=== PATIENT | female | born 1995 | race Caucasian/White ===

== ENCOUNTER 2018-04-30 20:13 | Emergency (ER) | payer OTHER ==
[~2018-04-30 20:13] MED LIST: ETHI1TAB20 PO
--- NOTE | 2018-04-30 20:29 | ER Report ---
History and Physical Time Seen By MD: 20:25 Hx. of Stated Complaint: Patient sent from urgent care. Chest pain and shortness of breath. On oral control pills since 2009 HPI/ROS CHIEF COMPLAINT: Chest tightness HISTORY OF PRESENT ILLNESS: 22-year-old female sent over from urgent care with concerns over chest tightness and difficulty breathing. Patient's on control pills. They were concerned about a pulmonary embolism. A arauz describes approximately 3-4 days of URI symptoms with coughing and chest tightness. She's had no leg swelling. Patient uses an albuterol inhaler when necessary. REVIEW OF SYSTEMS: Respiratory: As above Cardiovascular: As above Gastrointestinal: No vomiting, no abdominal pain. Musculoskeletal: No back pain. Allergies: Coded Allergies: Penicillins (Verified Allergy, Intermediate, RASH, SWELLING, 04/30/18) amoxicillin (Verified Allergy, Intermediate, RASH, SWELLING, 04/30/18) Home Meds Reported Medications Ethinyl Estradiol/Drospirenone (OCELLA 3 MG-0.03 MG TABLET) 1 Each Tablet, 1 EACH PO DAILY 11/28/15 Reviewed Nurses Notes: Yes Old Medical Records Reviewed: Yes Hx Smoking: No Smoking Status: Never Smoker Hx Substance Use Disorder: No Hx Alcohol Use: No Constitutional Vital Sign - Last 24 Hours 04/30/18 04/30/18 04/30/18 04/30/18 20:19 20:21 20:30 20:36 Temp 98.7 Pulse 84 Resp 16 B/P (MAP) 125/91 (102) 125/91 121/89 (100) Pulse Ox 98 96 O2 Delivery Room Air 04/30/18 04/30/18 20:45 21:00 Pulse 79 87 B/P (MAP) 118/99 (105) Pulse Ox 97 98 Physical Exam Vital signs stable, afebrile, pulse ox normal General Appearance: The patient is alert, has no immediate need for airway protection and no current signs of toxicity. No acute distress HEENT: Pupils equal and round no injection. TMs normal, oropharynx with mild erythema, no exudate Respiratory: Chest is non tender, lungs are clear to auscultation. No wheezing , no chest all tenderness Cardiac: regular rate and rhythm Gastrointestinal: Abdomen is soft and non tender, no masses, bowel sounds normal. Musculoskeletal: Neck: Neck is supple and non tender. No lymphadenopathy Extremities have full range of motion and are non tender. No edema, no calf tenderness Skin: No rashes or lesions. DIFFERENTIAL DIAGNOSIS: After history and physical exam differential diagnosis was considered for shortness of breath including but not limited to pulmonary infectious process, COPD, asthma, pulmonary embolus and congestive heart failure. Medical Decision Making Data Points Result Diagram: 04/30/18203504/30/182035 Laboratory Hematology Test 04/30/18 20:36 Red Blood Count 4.55 M/uL (4.17-5.56) Mean Corpuscular Volume 86.9 fL (80.0-96.0) Mean Corpuscular Hemoglobin 30.7 pg (26.0-33.0) Mean Corpuscular Hemoglobin Concent 35.3 g/dL (32.0-36.0) Red Cell Distribution Width 12.7 % (11.5-14.5) Mean Platelet Volume 6.7 fL (7.2-11.1) Neutrophils (%) (Auto) 44.3 % (39.4-72.5) Lymphocytes (%) (Auto) 47.4 % (17.6-49.6) Monocytes (%) (Auto) 5.9 % (4.1-12.4) Eosinophils (%) (Auto) 1.4 % (0.4-6.7) Basophils (%) (Auto) 1.0 % (0.3-1.4) Nucleated RBC Relative Count (auto) 0.1 /100WBC Neutrophils # (Auto) 3.6 K/uL (2.0-7.4) Lymphocytes # (Auto) 3.9 K/uL (1.3-3.6) Monocytes # (Auto) 0.5 K/uL (0.3-1.0) Eosinophils # (Auto) 0.1 K/uL (0.0-0.5) Basophils # (Auto) 0.1 K/uL (0.0-0.1) Nucleated RBC Absolute Count (auto) 0.01 K/uL D-Dimer Quantitative (PE/DVT) < 0.27 ug/ml (0-0.50) Sodium Level 137 mmol/L (137-145) Potassium Level 3.6 mmol/L (3.5-5.0) Chloride Level 103 mmol/L (98-107) Carbon Dioxide Level 25 mmol/L (22-31) Blood Urea Nitrogen 9 mg/dl (7-18) Creatinine 0.60 mg/dl (0.52-1.04) Glomerular Filtration Rate Calc > 60.0 Random Glucose 90 mg/dl (75-110) Calcium Level 8.9 mg/dl (8.4-10.2) Total Bilirubin 0.4 mg/dl (0.2-1.3) Aspartate Amino Transf (AST/SGOT) 30 U/L (0-35) Alanine Aminotransferase (ALT/SGPT) 20 U/L (0-56) Alkaline Phosphatase 68 U/L (0-126) Total Protein 7.2 g/dl (6.3-8.2) Albumin 3.8 g/dl (3.5-5.0) Human Chorionic Gonadotropin, Qual Negative (NEGATIVE) Chemistry Test 04/30/18 20:36 White Blood Count 8.1 k/uL (4.5-11.0) Red Blood Count 4.55 M/uL (4.17-5.56) Hemoglobin 13.9 g/dL (12.0-16.0) Hematocrit 39.5 % (34.0-47.0) Mean Corpuscular Volume 86.9 fL (80.0-96.0) Mean Corpuscular Hemoglobin 30.7 pg (26.0-33.0) Mean Corpuscular Hemoglobin Concent 35.3 g/dL (32.0-36.0) Red Cell Distribution Width 12.7 % (11.5-14.5) Platelet Count 318 K/uL (150-450) Mean Platelet Volume 6.7 fL (7.2-11.1) Neutrophils (%) (Auto) 44.3 % (39.4-72.5) Lymphocytes (%) (Auto) 47.4 % (17.6-49.6) Monocytes (%) (Auto) 5.9 % (4.1-12.4) Eosinophils (%) (Auto) 1.4 % (0.4-6.7) Basophils (%) (Auto) 1.0 % (0.3-1.4) Nucleated RBC Relative Count (auto) 0.1 /100WBC Neutrophils # (Auto) 3.6 K/uL (2.0-7.4) Lymphocytes # (Auto) 3.9 K/uL (1.3-3.6) Monocytes # (Auto) 0.5 K/uL (0.3-1.0) Eosinophils # (Auto) 0.1 K/uL (0.0-0.5) Basophils # (Auto) 0.1 K/uL (0.0-0.1) Nucleated RBC Absolute Count (auto) 0.01 K/uL D-Dimer Quantitative (PE/DVT) < 0.27 ug/ml (0-0.50) Glomerular Filtration Rate Calc > 60.0 Calcium Level 8.9 mg/dl (8.4-10.2) Total Bilirubin 0.4 mg/dl (0.2-1.3) Aspartate Amino Transf (AST/SGOT) 30 U/L (0-35) Alanine Aminotransferase (ALT/SGPT) 20 U/L (0-56) Alkaline Phosphatase 68 U/L (0-126) Total Protein 7.2 g/dl (6.3-8.2) Albumin 3.8 g/dl (3.5-5.0) Human Chorionic Gonadotropin, Qual Negative (NEGATIVE) Coagulation Test 04/30/18 20:36 D-Dimer Quantitative (PE/DVT) < 0.27 ug/ml ED Course/Re-evaluation Clinical Indication for ER IV: IV Access ED Course Patient was minute to an examination room. H&P was done. The differential diagnosis was considered. On conical examination, patient is stable vital signs. She has some chest discomfort. She's had no leg swelling. Diagnostic evaluation is undertaken. Laboratory studies are unremarkable as well as a d- dimer. She is reassured that she does not have a pulmonary embolism. Patient advised conservative treatment of her chest tightness with albuterol and ibuprofen. She is advised to follow-up with primary care if unimproved. Decision to Disposition Date: Apr 30, 2018 Decision to Disposition Time: 21:06 Depart Departure Latest Vital Signs Vital Signs Date Time Temp Pulse Resp B/P (MAP) Pulse Ox O2 Delivery O2 Flow Rate FiO2 04/30/18 21:00 87 118/99 (105) 98 04/30/18 20:21 98.7 16 Room Air Impression: Primary Impression: Chest tightness Additional Impression: History of reactive airway disease Condition: Improved Disposition: HOME OR SELF-CARE Referrals: NICHOLE LY MD Patient Instructions: Bronchospasm (ED) Additional Instructions: Use your Ventolin inhaler as needed Take ibuprofen 200 mg 3 tablets 3 times a day with food for 3-5 days Use cough medication as necessary Follow-up with primary care if unimproved in 3-5 days Problem Qualifiers LAMONT STEIN DO Apr 30, 2018 20:29
[2018-04-30 20:49] LABS: PLATELET COUNT, AUTOMATED 318 K/uL (150-450)
[2018-04-30 21:00] VITALS: BP 118/99
== END 2018-04-30 21:14 | disposition home or self-care (01) ==
LOC: ER 20:27
DX: R07.89 Other chest pain (principal); J45.909 Unspecified asthma, uncomplicated
CPT/HCPCS: 82040; 82247; 82310; 82374; 82435; 82565; 82947; 84075; 84132; 84155; 84295; 84450; 84460; 84520; 84703; 85025; 85379; 99282

== ENCOUNTER 2018-08-14 09:14 | Emergency (ER) | payer OTHER ==
[2018-08-14] MEDS ORDERED: ONDANSETRON 4 MG ODT TABDP SL ONE (09:40)
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
[2018-08-14 11:00] VITALS: BP 106/77
[2018-08-14] MEDS ORDERED: ONDA4TAB97 PO (11:40)
[2018-08-14] MEDS ORDERED: LOR5/325 PO (11:40)
== END 2018-08-14 11:45 | disposition home or self-care (01) ==
LOC: ER 09:14
DX: S06.0X0A Concussion without loss of consciousness, initial encounter (principal); V49.50XA Passenger injured in collision with unspecified motor vehicles in traffic accident, initial encounter
CPT/HCPCS: 70450; 81025; 99284; S0119